=== PATIENT | male | born 1995 | race Caucasian/White ===

== ENCOUNTER 2017-03-16 12:41 | Emergency (ER) | payer OTHER ==
[2017-03-16 12:47] VITALS: TEMP 98.6
--- NOTE | 2017-03-16 13:33 | EDPHY ---
H & P Time Seen by Provider: 03/16/17 13:15 HPI/ROS: CHIEF COMPLAINT: Left knee laceration HISTORY OF PRESENT ILLNESS: The patient is a 21-year-old male who presents emergency department after lacerating his left knee. Patient was cleaning out a garage when he stepped through decking material. He is able to ambulate. He has full range of motion of his leg per report. No numbness and tingling of his foot. The bleeding is controlled. No other injury. Patient's last tetanus shot was 8 years ago. REVIEW OF SYSTEMS: My complete review of systems is negative except as mentioned in the HPI. Past Medical/Surgical History: Negative Past surgical history: Negative Smoking Status: Current some day smoker Physical Exam: Vitals noted General Appearance: Alert and no distress. Head: Pupils equal. Normal. Respiratory: No respiratory distress. Cardiac: regular rate and rhythm. Extremities: the patient is a 6 cm irregular laceration under his left knee anteriorly. No active bleeding. No visible foreign body. No visible ligament or tendon injury. He has full range of motion of the with no discomfort. He is able to ambulate. He is neurovascular intact distally.. Skin: No rashes or lesions. Neuro: Alert. Normal mood and affect. Constitutional: Initial Vital Signs Temperature (C) 37 C 03/16/17 12:44 Heart Rate 87 03/16/17 12:44 Respiratory Rate 20 03/16/17 12:44 Blood Pressure 149/85 H 03/16/17 12:44 O2 Sat (%) 97 03/16/17 12:44 O2 Delivery Mode Room Air Allergies/Adverse Reactions: No Known Allergies Allergy (Unverified 03/16/17 12:44) Home Medications: Medication Instructions Recorded NK [No Known Home Meds] 03/16/17 Medical Decision Making Procedures: Procedure: Laceration repair. Verbal consent was obtained from the patient. The 6 cm laceration on the left knee was anesthetized in the usual fashion. The wound was irrigated, draped and explored to its base with a gloved finger. There were no deep structures involved. No tendon injury was identified. The wound was repaired with 4 0 nylon. The wound repair was simple. The procedure was performed by myself. ED Course/Re-evaluation: In the emergency department I discussed possible etiologies with the patient. The patient will be given a tetanus update. An x-ray was ordered. Patient had his wound anesthetized cleaned and repaired. The patient tolerated the procedure well. I doubt joint involvement. There is no visible foreign body on exam or x-ray. Patient was given warnings prior to leaving. He will return with worsening symptoms. Differential Diagnosis: My differential includes but is not limited to laceration, ligamentous injury, tendon injury, foreign body, joint capsule disruption Departure - Departure Disposition: Home, Routine, Self-Care Clinical Impression: Laceration of left knee Qualifiers: Encounter type: initial encounter Qualified Code(s): S81.012A - Laceration without foreign body, left knee, initial encounter Condition: Good Instructions: Laceration (ED) Additional Instructions: Wound Care Follow-Up: Removal of sutures in [ 10 ] days. Suture removal is complimentary in uncomplicated cases. Infection or abnormal findings would require reevaluation by the MD. In that case, you may be billed. Referrals: Jonny Weeks MD [Medical Doctor] - 5-7 days, if not improved
[2017-03-16 14:30] VITALS: BP 144/75; PULSE 68; RESP 18; O2SAT 94
== END 2017-03-16 14:39 | disposition home or self-care (01) ==
PROC: 0HQLXZZ Repair Left Lower Leg Skin, External Approach (ICD-10-PCS; principal; 2017-03-16)
DX: S81.012A Laceration without foreign body, left knee, initial encounter (principal); F17.200 Nicotine dependence, unspecified, uncomplicated; W26.8XXA Contact with other sharp object(s), not elsewhere classified, initial encounter; Y92.89 Other specified places as the place of occurrence of the external cause; Y93.89 Activity, other specified